=== PATIENT | female | born 1945 | race Hispanic/Latino ===

== ENCOUNTER 2019-10-05 17:29 | Inpatient (IN) | payer OTHER ==
[~2019-10-05] VITALS: Ht 147.3 cm; Wt 72.5 kg
[~2019-10-05 17:29] MED LIST: ALEN70TA69 PO; ASPI-556 PO; ATOR40TA69 PO; CITA10TA7 PO; DONE10TA36 PO; ERGO1POW10 MC; FERR324T4 PO; Folic Acid/Vitamin B Comp W-C PO; MAGOX PO; METF-446 PO; SODI650T PO; VALS160T29 PO
[2019-10-05 18:24] LABS: BASOPHILS % (AUTO) 0.7 % (0.0-5.0); EOSINOPHILS % (AUTO) 1.5 % (0.0-8.0); HEMATOCRIT 31.5 % (36-48); LYMPHOCYTES % (AUTO) 28.6 % (21.0-51.0); MEAN CORPUSCULAR HEMOGLOBIN 31.9 pg (27.0-33.0); MEAN CORPUSCULAR HGB CONC 32.1 g/dL (32.0-36.0); MEAN CORPUSCULAR VOLUME 99.4 fL (79-99); MONOCYTES % (AUTO) 10.1 % (3.0-13.0); NEUTROPHILS % (AUTO) 58.7 % (40.0-77.0); PLATELET COUNT (AUTO) 202 K/uL (130-400); RED BLOOD CELL COUNT(AUTO) 3.17 MIL/uL (4.00-5.50); RED CELL DISTRIBUTION WIDTH 12.2 % (11.0-15.5); WHITE BLOOD COUNT (AUTO) 5.5 K/uL (4.8-10.8)
[2019-10-05 18:26] LABS: CREATININE 1.1 mg/dL (0.5-1.5); POTASSIUM 4.7 mmol/L (3.5-5.1)
[2019-10-05 18:29] LABS: INR 0.99 (0.85-1.15); PARTIAL THROMBOPLASTIN TIME 25.2 SEC (26.3-35.5); PROTHROMBIN TIME 10.7 SEC (9.6-11.6)
[2019-10-05 18:31] LABS: ALBUMIN 3.3 g/dL (3.5-5.0); BILIRUBIN,TOTAL 0.3 mg/dL (0.2-1.0); TOTAL PROTEIN, SERUM 7.8 g/dL (6.0-8.3)
[2019-10-05] MEDS ORDERED: MORPHINE SULFATE 4 MG/1ML SYG ONE (18:42)
[2019-10-05] MEDS ORDERED: ONDANSETRON HCL 4 MG/2 ML VIAL ONE (18:42)
[2019-10-05 23:51] LABS: APPEARANCE,URINE Clear (CLEAR); BILIRUBIN,URINE Negative (NEGATIVE); COLOR,URINE Yellow (YELLOW); GLUCOSE, URINE (UA) Negative (NEGATIVE); KETONES,URINE Negative (NEGATIVE); LEUKOCYTE ESTERASE ,URINE Negative (NEGATIVE); NITRATE,URINE Negative (NEGATIVE); OCCULT BLOOD,URINE Negative (NEGATIVE); PH,URINE 5.5 (5.0-8.0); PROTEIN,URINE Trace mg/dL (NEGATIVE); UROBILINOGEN,URINE 0.2 mg/dL (0.2-1.0)
[2019-10-06 00:35] VITALS: BP 155/64
[2019-10-06] MEDS ORDERED: LACTATED RINGERS 1000ML 1,000 ML IV ONE (01:13)
[2019-10-06] MEDS ORDERED: MORPHINE SULFATE 2 MG/ML 1ML SYG ONE (02:14)
[2019-10-06 04:00] VITALS: BP 111/49
[2019-10-06 08:00] VITALS: BP 105/48
[2019-10-06] MEDS ORDERED: POTASSIUM CHLORIDE 20 MEQ ERTAB PO PRN (08:15)
[2019-10-06] MEDS ORDERED: ONDANSETRON HCL 4 MG/2 ML VIAL IVP PRN (08:15)
[2019-10-06] MEDS ORDERED: HYDRALAZINE HCL 20 MG/ML VIAL IV PRN (08:15)
[2019-10-06] MEDS ORDERED: HYDROMORPHONE HCL 0.5 MG/0.5 ML ML IVP PRN (08:15)
[2019-10-06] MEDS ORDERED: NITROGLYCERIN 0.4 MG SL TAB SL PRN (08:15)
[2019-10-06] MEDS ORDERED: POTASSIUM CHLORIDE 10% ELIXIR 20 MEQ/15 ML UDCUP PO PRN (08:15)
[2019-10-06] MEDS ORDERED: DEXTROSE 50%-WATER 50 ML DISP.SYRIN IV PRN (08:15)
[2019-10-06] MEDS ORDERED: LACTULOSE 20 GM/30 ML UDCUP PO PRN (08:15)
[2019-10-06] MEDS ORDERED: LIDOCAINE HCL-MPF 1% 2ML VIAL IV PRN (08:15)
[2019-10-06] MEDS ORDERED: GUAIFENESIN-DM 200/20 MG 10 ML PO PRN (08:15)
[2019-10-06] MEDS ORDERED: ACETAMINOPHEN 325 MG TAB PO PRN (08:15)
[2019-10-06] MEDS ORDERED: ONDANSETRON HCL 4 MG/2 ML VIAL IV PRN (08:15)
[2019-10-06] MEDS ORDERED: GLUCAGON 1MG KIT 1 MG ML IM PRN (08:15)
[2019-10-06] MEDS ORDERED: DiphenhydrAMINE HCL 50 MG/ML VIAL IV PRN (08:15)
[2019-10-06] MEDS ORDERED: POTASSIUM CHLORIDE 20MEQ/100ML 100 ML IV PRN (08:15)
[2019-10-06 08:59] LABS: MEAN CORPUSCULAR HEMOGLOBIN 31.2 pg (27.0-33.0); MEAN CORPUSCULAR HGB CONC 30.7 g/dL (32.0-36.0); MEAN CORPUSCULAR VOLUME 101.8 fL (79-99); PLATELET COUNT (AUTO) 186 K/uL (130-400); RED BLOOD CELL COUNT(AUTO) 2.85 MIL/uL (4.00-5.50); RED CELL DISTRIBUTION WIDTH 12.3 % (11.0-15.5); WHITE BLOOD COUNT (AUTO) 7.3 K/uL (4.8-10.8)
[2019-10-06 09:08] LABS: CREATININE 1.1 mg/dL (0.5-1.5); POTASSIUM 4.6 mmol/L (3.5-5.1)
[2019-10-06] MEDS ORDERED: COMPOUND IV MISC 1 EACH IVSOLN MISC PRN (09:30)
[2019-10-06] MEDS: HEPARIN SODIUM 5000UNIT/ML 1ML VIAL SQ SCH ×2 (10:33→21:37)
[2019-10-06] MEDS: FAMOTIDINE/PF 20 MG/2 ML VIAL IV SCH ×2 (10:42→21:35)
[2019-10-06] MEDS: LACTOBACILLUS RHAMNOSUS GG 1 EACH CAP.SPRINK PO SCH ×3 (10:42→21:36)
[2019-10-06] MEDS: INSULIN HUMULIN R 100 UNIT/ML 3ML SQ SCH ×3 (11:28→21:37)
[2019-10-06] MEDS: HYDROCODONE/ACETAMINOPHEN 10/325 MG TAB PO PRN ×2 (11:35→21:41)
[2019-10-06 11:45] VITALS: BP 100/48
[2019-10-06] MEDS ORDERED: SERT50TA PO (12:37)
--- NOTE | 2019-10-06 14:04 | NUR ---
INITIAL SW spoke to patient's daughter, Leonor Tay, [phone]. Daughter informed SW that patient lives with spouse, Ga Arechiga, [phone] and one of patient's sons. No home services. DME: cane, glucometer (no insulin). As per daughter, patient is able to complete ADL's and drives. PCP is Dr. Sunshine Jennings. Pharmacy is [facility] located on [address]. DCP is home. Addendum: 10/06/19 at 1407 by GLORIA RUBY SS Amended: Links added.
[2019-10-06 16:00] VITALS: BP 117/49
[2019-10-06] MEDS: SODIUM CHLORIDE 0.9% 1000ML 1,000 ML IV SCH ×2 (17:16→20:40)
[2019-10-06 20:58] VITALS: BP 115/48
[2019-10-07 00:11] VITALS: BP 124/46
[2019-10-07 04:00] VITALS: BP 101/41
[2019-10-07] MEDS: SODIUM CHLORIDE 0.9% 1000ML 1,000 ML IV SCH ×2 (04:21→21:25)
[2019-10-07 05:23] LABS: HEMATOCRIT 27.8 % (36-48); MEAN CORPUSCULAR HEMOGLOBIN 31.5 pg (27.0-33.0); MEAN CORPUSCULAR HGB CONC 31.3 g/dL (32.0-36.0); MEAN CORPUSCULAR VOLUME 100.7 fL (79-99); PLATELET COUNT (AUTO) 167 K/uL (130-400); RED BLOOD CELL COUNT(AUTO) 2.76 MIL/uL (4.00-5.50); RED CELL DISTRIBUTION WIDTH 12.2 % (11.0-15.5)
[2019-10-07 05:42] LABS: POTASSIUM 4.6 mmol/L (3.5-5.1)
[2019-10-07] MEDS: INSULIN HUMULIN R 100 UNIT/ML 3ML SQ SCH ×4 (06:13→21:00)
[2019-10-07 08:00] VITALS: BP 101/40
[2019-10-07] MEDS: HEPARIN SODIUM 5000UNIT/ML 1ML VIAL SQ SCH ×2 (09:20→21:34)
[2019-10-07] MEDS: FAMOTIDINE/PF 20 MG/2 ML VIAL IV SCH ×2 (09:22→21:26)
[2019-10-07] MEDS: LACTOBACILLUS RHAMNOSUS GG 1 EACH CAP.SPRINK PO SCH ×3 (09:22→21:26)
[2019-10-07] MEDS: IRON SUCROSE COMPLEX 100 MG in SODIUM CHLORIDE 0.9% 50 ML IV SCH (09:30)
--- NOTE | 2019-10-07 11:25 | NUR ---
DR. PALACIOS ROUNDED THIS AM. NOTIFIED DR. PALACIOS THAT PATIENT'S DAUGHTER HAS QUESTIONS REGARDING THE PROCEDURE FOR RIGHT FEMUR FRACTURE REPAIR. PER DR. PALACIOS, SURGERY MAY BE SCHEDULED FOR WEDNESDAY PENDING GRAFT. DR. PALACIOS SPOKE TO (REGIS) PATIENT'S DAUGHTER, QUESTIONS WERE ANSWERED.
[2019-10-07 11:40] VITALS: BP 110/52
[2019-10-07 16:00] VITALS: BP 105/36
[2019-10-07 20:00] VITALS: BP 143/56
[2019-10-08] VITALS: BP 102/62
[2019-10-08] MEDS: SODIUM CHLORIDE 0.9% 1000ML 1,000 ML IV SCH ×3 (00:14→21:15)
[2019-10-08 04:00] VITALS: BP 117/44
[2019-10-08] MEDS: INSULIN HUMULIN R 100 UNIT/ML 3ML SQ SCH ×4 (05:22→21:00)
[2019-10-08 06:44] LABS: HEMATOCRIT 27.3 % (36-48); MEAN CORPUSCULAR HEMOGLOBIN 31.4 pg (27.0-33.0); MEAN CORPUSCULAR HGB CONC 31.5 g/dL (32.0-36.0); MEAN CORPUSCULAR VOLUME 99.6 fL (79-99); PLATELET COUNT (AUTO) 162 K/uL (130-400); RED BLOOD CELL COUNT(AUTO) 2.74 MIL/uL (4.00-5.50); RED CELL DISTRIBUTION WIDTH 11.9 % (11.0-15.5); WHITE BLOOD COUNT (AUTO) 7.7 K/uL (4.8-10.8)
[2019-10-08 07:02] LABS: CREATININE 0.9 mg/dL (0.5-1.5); POTASSIUM 4.1 mmol/L (3.5-5.1)
[2019-10-08 08:00] VITALS: BP 133/52
[2019-10-08] MEDS: HYDROCODONE/ACETAMINOPHEN 10/325 MG TAB PO PRN (08:59)
[2019-10-08] MEDS: LACTOBACILLUS RHAMNOSUS GG 1 EACH CAP.SPRINK PO SCH ×3 (09:00→21:01)
[2019-10-08] MEDS: FAMOTIDINE/PF 20 MG/2 ML VIAL IV SCH ×2 (09:00→21:01)
[2019-10-08] MEDS: IRON SUCROSE COMPLEX 100 MG in SODIUM CHLORIDE 0.9% 50 ML IV SCH (09:51)
[2019-10-08] MEDS: HEPARIN SODIUM 5000UNIT/ML 1ML VIAL SQ SCH ×2 (10:35→21:11)
[2019-10-08 12:00] VITALS: BP 139/60
[2019-10-08 16:00] VITALS: BP 125/52
[2019-10-08 20:00] VITALS: BP 128/54
[2019-10-09] VITALS (7 sets, daily range): BP systolic 106–155; BP diastolic 51–73
[2019-10-09 04:50] LABS: HEMATOCRIT 25.7 % (36-48); MEAN CORPUSCULAR HEMOGLOBIN 31.8 pg (27.0-33.0); MEAN CORPUSCULAR HGB CONC 31.9 g/dL (32.0-36.0); MEAN CORPUSCULAR VOLUME 99.6 fL (79-99); PLATELET COUNT (AUTO) 169 K/uL (130-400); RED BLOOD CELL COUNT(AUTO) 2.58 MIL/uL (4.00-5.50); WHITE BLOOD COUNT (AUTO) 7.3 K/uL (4.8-10.8)
[2019-10-09 05:12] LABS: CREATININE 0.7 mg/dL (0.5-1.5)
[2019-10-09] MEDS: INSULIN HUMULIN R 100 UNIT/ML 3ML SQ SCH ×4 (07:30→20:30)
[2019-10-09] MEDS: LACTOBACILLUS RHAMNOSUS GG 1 EACH CAP.SPRINK PO SCH ×3 (09:00→20:29)
[2019-10-09] MEDS: IRON SUCROSE COMPLEX 100 MG in SODIUM CHLORIDE 0.9% 50 ML IV SCH (10:02)
[2019-10-09] MEDS: FAMOTIDINE/PF 20 MG/2 ML VIAL IV SCH ×2 (10:02→20:29)
[2019-10-09] MEDS: SODIUM CHLORIDE 0.9% 1000ML 1,000 ML IV SCH ×3 (10:05→20:39)
[2019-10-09] MEDS: HEPARIN SODIUM 5000UNIT/ML 1ML VIAL SQ SCH ×2 (10:13→20:28)
[2019-10-09] MEDS ORDERED: CEFAZOLIN SODIUM 1 GM VIAL IVP PRN (10:45)
[2019-10-10] MEDS: HYDROCODONE/ACETAMINOPHEN 10/325 MG TAB PO PRN ×2 (00:38→21:04)
[2019-10-10] MEDS: INSULIN HUMULIN R 100 UNIT/ML 3ML SQ SCH ×4 (07:30→21:00)
[2019-10-10 08:06] VITALS: BP 107/45
[2019-10-10] MEDS: HEPARIN SODIUM 5000UNIT/ML 1ML VIAL SQ SCH ×2 (08:22→21:00)
[2019-10-10] MEDS: LACTOBACILLUS RHAMNOSUS GG 1 EACH CAP.SPRINK PO SCH ×3 (08:22→21:00)
[2019-10-10] MEDS: IRON SUCROSE COMPLEX 100 MG in SODIUM CHLORIDE 0.9% 50 ML IV SCH (08:22)
[2019-10-10] MEDS: FAMOTIDINE/PF 20 MG/2 ML VIAL IV SCH ×2 (08:22→21:00)
--- NOTE | 2019-10-10 10:44 | NUR ---
ORTHOPEDIC SURGEON DR. PALACIOS IN TO SPEAK WITH PATIENT. NEW ORDERS RECEIVED AND CARRIED OUT.
[2019-10-10 11:20] VITALS: BP 119/53
[2019-10-10 16:02] VITALS: BP 118/58
[2019-10-10 20:00] VITALS: BP 132/63
[2019-10-10] MEDS: SODIUM CHLORIDE 0.9% 1000ML 1,000 ML IV SCH ×2 (21:03→21:04)
[2019-10-10 23:55] VITALS: BP 119/49
[2019-10-11] VITALS (24 sets, daily range): BP systolic 106–139; BP diastolic 40–87
[2019-10-11 06:20] LABS: MEAN CORPUSCULAR HEMOGLOBIN 31.1 pg (27.0-33.0); MEAN CORPUSCULAR HGB CONC 31.1 g/dL (32.0-36.0); PLATELET COUNT (AUTO) 194 K/uL (130-400); RED CELL DISTRIBUTION WIDTH 12.3 % (11.0-15.5); WHITE BLOOD COUNT (AUTO) 5.5 K/uL (4.8-10.8)
[2019-10-11] MEDS: INSULIN HUMULIN R 100 UNIT/ML 3ML SQ SCH ×4 (06:29→20:29)
[2019-10-11 06:33] LABS: CREATININE 0.8 mg/dL (0.5-1.5); POTASSIUM 3.6 mmol/L (3.5-5.1)
[2019-10-11] MEDS: LACTOBACILLUS RHAMNOSUS GG 1 EACH CAP.SPRINK PO SCH ×3 (08:22→21:00)
[2019-10-11] MEDS: HEPARIN SODIUM 5000UNIT/ML 1ML VIAL SQ SCH ×2 (08:22→21:09)
[2019-10-11] MEDS: FAMOTIDINE/PF 20 MG/2 ML VIAL IV SCH ×2 (08:22→21:00)
[2019-10-11] MEDS: IRON SUCROSE COMPLEX 100 MG in SODIUM CHLORIDE 0.9% 50 ML IV SCH (08:22)
[2019-10-11] MEDS ORDERED: LIDOCAINE PF 2% 5ML ABBOJECT ONE ×2 (11:46→12:54)
[2019-10-11] MEDS ORDERED: ONDANSETRON HCL 4 MG/2 ML VIAL ONE ×2 (11:47→12:54)
[2019-10-11] MEDS ORDERED: DEXAMETHASONE SOD PHOSPHATE 10MG/ML 1ML VIAL ONE (11:47)
[2019-10-11] MEDS ORDERED: ROCURONIUM 10MG/1ML SYR 10 MG/ML ML ONE ×2 (11:48→12:54)
[2019-10-11] MEDS ORDERED: PROPOFOL 10 MG/ML 20ML VIAL IV ONE ×2 (11:48→12:54)
[2019-10-11] MEDS ORDERED: FENTANYL CITRATE PF 50 MCG/1 ML 2ML VIAL ONE ×7 (11:48→16:01)
[2019-10-11] MEDS ORDERED: NEOSTIGMINE 5MG/5ML SYR IV ONE (11:48)
[2019-10-11] MEDS ORDERED: GLYCOPYRROLATE 1 MG/5 ML SYRINGE ONE (11:48)
[2019-10-11] MEDS ORDERED: MIDAZOLAM HCL 1 MG/ML 2ML VIAL ONE (11:48)
[2019-10-11] MEDS ORDERED: SUCCINYLCHOLINE CHLORIDE 20 MG/ML 10 ML VIAL ONE (12:54)
[2019-10-11] MEDS ORDERED: DEXAMETHASONE SOD PHOSPHATE 4 MG/ML 1ML VIAL ONE (13:15)
[2019-10-11] MEDS ORDERED: CEFAZOLIN SODIUM 1 GM VIAL ONE (13:36)
[2019-10-11] MEDS ORDERED: EPHEDRINE SULFATE 50 MG/ML AMPULE ONE (13:37)
[2019-10-11] MEDS ORDERED: ALBUMIN (HUMAN) 5% 250 ML IV ONE ×2 (13:48→13:49)
[2019-10-11] MEDS ORDERED: VANCOMYCIN HCL 1 GM VIAL ONE (14:36)
[2019-10-11] MEDS: CEFAZOLIN SODIUM 1 GM VIAL IVP SCH ×2 (15:30→23:02)
[2019-10-11] MEDS ORDERED: MORPHINE SULFATE 4 MG/1ML SYG ONE (16:15)
--- NOTE | 2019-10-11 17:08 | NUR ---
POST SURGERY PATIENT RECEIVED FROM PACU VIA HOSPITAL BED IN STABLE CONDITION. SHE IS SLEEPY, BUT ABLE TO ANSWER QUESTIONS. DENIES PAIN AT THIS TIME. POST OP V/S HAVE BEEN INITIATED. REORIENTED TO ROOM AND USE OF CALL LIGHT. WILL CONTINUE TO MONITOR.
[2019-10-11] MEDS: SODIUM CHLORIDE 0.9% 1000ML 1,000 ML IV SCH (18:28)
[2019-10-11] MEDS: HYDROCODONE/ACETAMINOPHEN 10/325 MG TAB PO PRN (21:00)
[2019-10-12 00:16] VITALS: BP 117/56
[2019-10-12 04:12] VITALS: BP 118/53
[2019-10-12] MEDS: SODIUM CHLORIDE 0.9% 1000ML 1,000 ML IV SCH ×2 (05:20→14:14)
[2019-10-12 05:36] LABS: HEMATOCRIT 25.7 % (36-48); MEAN CORPUSCULAR HEMOGLOBIN 32.4 pg (27.0-33.0); MEAN CORPUSCULAR HGB CONC 32.7 g/dL (32.0-36.0); MEAN CORPUSCULAR VOLUME 99.2 fL (79-99); NUCLEATED RED BLOOD CELLS 0.2 % (0.0-0.19); PLATELET COUNT (AUTO) 190 K/uL (130-400); RED BLOOD CELL COUNT(AUTO) 2.59 MIL/uL (4.00-5.50); WHITE BLOOD COUNT (AUTO) 10.9 K/uL (4.8-10.8)
[2019-10-12] MEDS: INSULIN HUMULIN R 100 UNIT/ML 3ML SQ SCH ×4 (05:42→20:23)
[2019-10-12 05:43] LABS: CREATININE 0.8 mg/dL (0.5-1.5); POTASSIUM 4.3 mmol/L (3.5-5.1)
[2019-10-12] MEDS ORDERED: APIXABAN 5 MG TABLET PO SCH (08:45)
[2019-10-12 08:46] VITALS: BP 115/46
[2019-10-12] MEDS: IRON SUCROSE COMPLEX 100 MG in SODIUM CHLORIDE 0.9% 50 ML IV SCH (09:11)
[2019-10-12] MEDS: FAMOTIDINE/PF 20 MG/2 ML VIAL IV SCH ×2 (09:12→20:22)
[2019-10-12] MEDS: LACTOBACILLUS RHAMNOSUS GG 1 EACH CAP.SPRINK PO SCH ×3 (09:12→20:22)
[2019-10-12 11:25] VITALS: BP 116/52
[2019-10-12] MEDS: HYDROCODONE/ACETAMINOPHEN 10/325 MG TAB PO PRN ×2 (12:07→20:23)
--- NOTE | 2019-10-12 15:47 | NUR ---
ATUL SCREEN - LOS X 7 Pt admitted for R. Femur Fracture. S/p ORIF. 75gm CCD diet order resumed. Recommend 30mL ProMod TID. ATUL to continue to monitor. Please notify as additional nutrition concerns arise. Thank you. Addendum: 10/12/19 at [address] Amended: Links added.
--- NOTE | 2019-10-12 16:13 | NUR ---
CM NOTE SPOKE WITH DAUGHTER, REGIS ANGUIANO, OVER PHONE. PER POA, CONCERNED ABOUT COVID-19 AND PATIENTS COMORBIDITIES. EXPRESSED CONCERNED ABOUT PATIENTS DEMENTIA AND CONFUSION AND HOW NURSING HOMES ARE ON LOCK DOWN AND FAMILY NOT ABLE TO VISIT. POA AWARE OF PATIENT NOT ABLE TO STAY AT HOSPITAL. OPTIONS FOR SNF GIVEN BASED ON INSURANCE COVERAGE. PER POA, DOES NOT WANT [facility] " BEEN ON THE NEWS ABOUT [facility], NOT GONNA TAKE MY MOM THERE." POA EXPRESSED THAT THEY ARE OPEN TO HOME HEALTH WITH PT AND ARE WILLING TO BE TAUGHT PT EXERCISES THAT THEY CAN DO WITH PATIENT. WILL VOICE CONCERNS TO ADMITTING PROVIDER AND ORTHO CONSULT. CM TO FOLLOW UP ACCORDINGLY.
[2019-10-12 17:31] VITALS: BP 102/56
[2019-10-12 20:08] VITALS: BP 109/51
[2019-10-13] VITALS (7 sets, daily range): BP systolic 107–149; BP diastolic 48–85
[2019-10-13] MEDS: SODIUM CHLORIDE 0.9% 1000ML 1,000 ML IV SCH ×3 (00:14→20:29)
[2019-10-13] MEDS: HYDROCODONE/ACETAMINOPHEN 10/325 MG TAB PO PRN (01:16)
[2019-10-13 03:49] LABS: HEMATOCRIT 23.1 % (36-48); MEAN CORPUSCULAR HEMOGLOBIN 30.9 pg (27.0-33.0); MEAN CORPUSCULAR HGB CONC 31.6 g/dL (32.0-36.0); MEAN CORPUSCULAR VOLUME 97.9 fL (79-99); PLATELET COUNT (AUTO) 181 K/uL (130-400); RED BLOOD CELL COUNT(AUTO) 2.36 MIL/uL (4.00-5.50); RED CELL DISTRIBUTION WIDTH 14.1 % (11.0-15.5); WHITE BLOOD COUNT (AUTO) 9.2 K/uL (4.8-10.8)
[2019-10-13 04:07] LABS: CREATININE 0.9 mg/dL (0.5-1.5); POTASSIUM 3.6 mmol/L (3.5-5.1)
[2019-10-13] MEDS: INSULIN HUMULIN R 100 UNIT/ML 3ML SQ SCH ×4 (06:11→20:50)
[2019-10-13] MEDS: FAMOTIDINE/PF 20 MG/2 ML VIAL IV SCH ×2 (08:53→20:53)
[2019-10-13] MEDS: IRON SUCROSE COMPLEX 100 MG in SODIUM CHLORIDE 0.9% 50 ML IV SCH (08:53)
[2019-10-13] MEDS: LACTOBACILLUS RHAMNOSUS GG 1 EACH CAP.SPRINK PO SCH ×3 (08:53→20:53)
[2019-10-13] MEDS: ACETAMINOPHEN 325 MG TAB PO PRN (12:22)
--- NOTE | 2019-10-13 14:47 | NUR ---
[id number] patient signed IM Letter, I faxed IM Letter to [phone] and placed in chart under consent tab.
--- NOTE | 2019-10-13 15:00 | NUR ---
CM NOTE/DME NEW REQUEST FOR DME BY DR. PALACIOS. ELLI VERBAL OK FOR [facility]. RX FOR DME FAXED AND CONFIRMED RECEIVED. PER ZANE AT [facility], PATIENT APPROVED FOR WHEELCHAIR WITH LEG EXTENSION AND WILL BE DELIVERED TONIGHT. POSSIBLE DC HOME TOMORROW IF HH STABLE PER DR. PALACIOS. NURSING AWARE TO TEACH INCISION DRESSING. FAMILY AWARE OF DME DELIVERY. PRIMARY NURSE, MARILEE MEJÍA, MADE AWARE OF DME DELIVERY.
--- NOTE | 2019-10-13 16:13 | NUR ---
DC DEJESUS PER DR PALACIOS ORDERS. 10 CC REMOVED FROM B[facility]OON. TIP OF THE CATHETER INTACT. PATIENT DTV.
[2019-10-14 03:46] LABS: BASOPHILS % (AUTO) 0.3 % (0.0-5.0); EOSINOPHILS % (AUTO) 0.8 % (0.0-8.0); HEMATOCRIT 23.7 % (36-48); LYMPHOCYTES % (AUTO) 17.9 % (21.0-51.0); MEAN CORPUSCULAR HEMOGLOBIN 31.4 pg (27.0-33.0); MEAN CORPUSCULAR HGB CONC 32.5 g/dL (32.0-36.0); MEAN CORPUSCULAR VOLUME 96.7 fL (79-99); MONOCYTES % (AUTO) 8.3 % (3.0-13.0); NEUTROPHILS % (AUTO) 71.9 % (40.0-77.0); PLATELET COUNT (AUTO) 199 K/uL (130-400); RED BLOOD CELL COUNT(AUTO) 2.45 MIL/uL (4.00-5.50); RED CELL DISTRIBUTION WIDTH 13.8 % (11.0-15.5); WHITE BLOOD COUNT (AUTO) 8.8 K/uL (4.8-10.8)
[2019-10-14 03:51] VITALS: BP 124/48
[2019-10-14] MEDS: INSULIN HUMULIN R 100 UNIT/ML 3ML SQ SCH ×2 (06:09→11:23)
[2019-10-14] MEDS: SODIUM CHLORIDE 0.9% 1000ML 1,000 ML IV SCH (06:10)
[2019-10-14] MEDS: ACETAMINOPHEN 325 MG TAB PO PRN (08:20)
[2019-10-14] MEDS: IRON SUCROSE COMPLEX 100 MG in SODIUM CHLORIDE 0.9% 50 ML IV SCH (08:20)
[2019-10-14] MEDS: FAMOTIDINE/PF 20 MG/2 ML VIAL IV SCH (08:20)
[2019-10-14] MEDS: LACTOBACILLUS RHAMNOSUS GG 1 EACH CAP.SPRINK PO SCH ×2 (08:20→13:42)
[2019-10-14 08:33] VITALS: BP 142/57
[2019-10-14 12:40] VITALS: BP 118/57
--- NOTE | 2019-10-14 17:04 | NUR ---
DISCHARGE PATIENT AND DAUGHTER, REGIS WEINBERG, GIVEN DISCHARGE INSTRUCTIONS AND EDUCATION ON FOLLOW UP APPOINTMENTS, NEW PRESCRIBED MEDICATIONS, STRICT NWB TO THE RIGHT EXTREMITY, RX (TRAMADOL, ELIQUIS) AND INCISION CARE. PATIENT AND REGIS VERBALIZED UNDERSTANDING OF ALL EDUCATION GIVEN VIA TEACH BACK. IV DISCONTINUED, CATHETER INTACT. EMS HERE TO TRANSFER PATIENT. ALL BELONGINGS TAKEN WITH.
== END 2019-10-14 16:30 | disposition home or self-care (01) | DRG 480 ==
LOC: EDH 17:29 → EDHIP 18:50 → 4AH 22:19
PROVIDERS: ADMIT Internal Medicine Critical Care Medicine; ATTEND Internal Medicine Critical Care Medicine
PROC: 30233N1 Transfusion of Nonautologous Red Blood Cells into Peripheral Vein, Percutaneous Approach (ICD-10-PCS; 2019-10-11)
PROC: 0SP904Z Removal of Internal Fixation Device from Right Hip Joint, Open Approach (ICD-10-PCS; 2019-10-11)
PROC: 0QS804Z Reposition Right Femoral Shaft with Internal Fixation Device, Open Approach (ICD-10-PCS; principal; 2019-10-11 12:56)
DX: T84.194A Other mechanical complication of internal fixation device of right femur, initial encounter (principal); S72.301A Unspecified fracture of shaft of right femur, initial encounter for closed fracture; E44.1 Mild protein-calorie malnutrition; E87.1 Hypo-osmolality and hyponatremia; N17.9 Acute kidney failure, unspecified; M97.01XA Periprosthetic fracture around internal prosthetic right hip joint, initial encounter; M85.80 Other specified disorders of bone density and structure, unspecified site; D63.8 Anemia in other chronic diseases classified elsewhere; E66.9 Obesity, unspecified; N18.9 Chronic kidney disease, unspecified; Z96.641 Presence of right artificial hip joint; E11.22 Type 2 diabetes mellitus with diabetic chronic kidney disease; F32.9 Major depressive disorder, single episode, unspecified; F41.9 Anxiety disorder, unspecified; R15.9 Full incontinence of feces; W01.0XXA Fall on same level from slipping, tripping and stumbling without subsequent striking against object, initial encounter; Y93.01 Activity, walking, marching and hiking; Y92.89 Other specified places as the place of occurrence of the external cause; Y99.8 Other external cause status; Z79.82 Long term (current) use of aspirin; Z87.81 Personal history of (healed) traumatic fracture; Z68.33 Body mass index [BMI] 33.0-33.9, adult; Z88.8 Allergy status to other drugs, medicaments and biological substances; Z84.89 Family history of other specified conditions; Z83.3 Family history of diabetes mellitus; Z82.49 Family history of ischemic heart disease and other diseases of the circulatory system; Y79.8 Miscellaneous orthopedic devices associated with adverse incidents, not elsewhere classified; Y92.9 Unspecified place or not applicable
CPT/HCPCS: 36415; 71045; 73552; 73700; 80048; 80053; 81003; 82550; 82948; 84484; 85025; 85027; 85610; 85730; 86850; 86900; 86901; 86922; 93005; 97039; G0378; J0330; J0690; J1100; J1644; J1756; J1815; J2001; J2250; J2270; J2405; J2704; J2710; J3010; J3370; J3490; J7030; J7120; P9016; P9045

== ENCOUNTER 2023-03-05 20:37 | Emergency (ER) | payer OTHER, MEDICARE ==
[~2023-03-05] VITALS: Ht 154.9 cm; Wt 81.6 kg
[~2023-03-05 20:37] MED LIST changes: -ALEN70TA69 PO; +ALEN70TA80 PO; -CITA10TA7 PO; +DONE-53 PO; -DONE10TA36 PO; -FERR324T4 PO; -Folic Acid/Vitamin B Comp W-C PO; +MAGN400T7 PO; -MAGOX PO; -METF-446 PO; +SERT50TA PO; -SODI650T PO
[2023-03-05 21:21] LABS: CREATININE 1.4 mg/dL (0.5-1.5); POTASSIUM 4.3 mmol/L (3.5-5.1)
[2023-03-05 21:26] LABS: BASOPHILS # (AUTO) 0.03 K/uL (0.00-0.20); BASOPHILS % (AUTO) 0.4 % (0.0-5.0); EOSINOPHILS # (AUTO) 0.03 K/uL (0.00-0.70); EOSINOPHILS % (AUTO) 0.4 % (0.0-8.0); HEMATOCRIT 33.8 % (36-48); IMMATURE GRANULOCYTE ABSOLUTE 0.02 K/uL (0-1); LYMPHOCYTES # (AUTO) 1.2 K/uL (1.0-4.8); LYMPHOCYTES % (AUTO) 16.9 % (21.0-51.0); MEAN CORPUSCULAR HEMOGLOBIN 30.9 pg (27.0-33.0); MEAN CORPUSCULAR VOLUME 96.6 fL (79-99); MONOCYTES # (AUTO) 0.5 K/uL (0.1-1.0); MONOCYTES % (AUTO) 7.6 % (3.0-13.0); NEUTROPHILS # (AUTO) 5.3 K/uL (1.8-7.7); NEUTROPHILS % (AUTO) 74.4 % (40.0-77.0); PLATELET COUNT (AUTO) 203 K/uL (130-400); RED CELL DISTRIBUTION WIDTH 13.1 % (11.0-15.5); WHITE BLOOD COUNT (AUTO) 7.1 K/uL (4.8-10.8)
[2023-03-05] MEDS ORDERED: 0.9%NACL 1000ML 1,000 ML IV ONE (21:30)
[2023-03-05 21:31] LABS: ALBUMIN 3.2 g/dL (3.5-5.0); BILIRUBIN,TOTAL 0.6 mg/dL (0.2-1.0); TOTAL PROTEIN, SERUM 7.6 g/dL (6.0-8.3)
[2023-03-05 22:45] LABS: BILIRUBIN,URINE NEGATIVE (NEGATIVE); COLOR,URINE YELLOW (YELLOW); GLUCOSE, URINE (UA) NEGATIVE (NEGATIVE); KETONES,URINE 5 mg/dL (NEGATIVE); LEUKOCYTE ESTERASE ,URINE MODERATE Leu/uL (NEGATIVE); NITRATE,URINE NEGATIVE (NEGATIVE); OCCULT BLOOD,URINE TRACE-INTACT (NEGATIVE); PROTEIN,URINE 100 mg/dL (NEGATIVE); UROBILINOGEN,URINE 0.2 mg/dL (0.2-1.0)
[2023-03-05 22:48] LABS: ADD UA MICROSCOPIC YES; APPEARANCE,URINE CLOUDY (CLEAR)
[2023-03-05 23:03] LABS: BACTERIA,URINE Moderate /HPF (None Seen); RBC,URINE 0-1 /HPF (0-1); SQUAMOUS EPITHELIAL CELL,UR Few /HPF (0-2)
[2023-03-05 23:04] LABS: COARSE GRANULAR CASTS,URINE 0-2 /LPF (None Seen)
[2023-03-05 23:10] VITALS: PULSE 84
[2023-03-05 23:15] VITALS: BP 165/70; RESP 18; O2SAT 98
[2023-03-05] MEDS ORDERED: CEFU500T67 PO (23:47)
== END 2023-03-06 00:03 | disposition home or self-care (01) ==
LOC: EDH 20:37
DX: N39.0 Urinary tract infection, site not specified (principal); D64.9 Anemia, unspecified; E86.0 Dehydration; E11.9 Type 2 diabetes mellitus without complications; Z79.82 Long term (current) use of aspirin; Z79.899 Other long term (current) drug therapy; Z88.8 Allergy status to other drugs, medicaments and biological substances; Z90.49 Acquired absence of other specified parts of digestive tract
CPT/HCPCS: 99285; 96360; 70450; 71045; 82550; 84484; 80053; 85025; 87077; 87088; 87186; 81001; 36415; 93005; J7030

== ENCOUNTER → 2024-09-19 | Outpatient (CLI) | payer OTHER, MEDICARE ==
[~2024-09-19] MED LIST changes: +CEFU500T67 PO; +FENTanyl CITRate PF 50 MCG/1 ML 2ML VIAL ONE; +MIDAZOLAM HCL 1 MG/ML 2ML VIAL ONE
--- NOTE | 2024-09-19 22:58 | HMCSR ---
APPROVED REPORT EXAM: Two-dimensional and M-mode echocardiogram with Doppler and color Doppler. INDICATION ICD: Dyspnea R06.00, Cardiac murmur 2D Dimensions RVDd2.9 cmLVEF(%)56.9 (>50%)LVEF(%, simp.)55 % IVSd1.2 (0.7-1.1cm)FS(%)29 %LA ESV INDEX (BP)27.76 mL/m2 LVDd3.6 (3.8-5.6cm)LA (2D)4.8 (1.6-4.0cm) PWd0.8 (0.7-1.1cm)Ao Root(2D)2.5 (2.0-3.7cm) IVSs1.1 cmLVOT diam1.5 (1.8-2.4cm) LVDs2.6 (2.5-4.0cm)IVC diam1.6 cm PWs1.2 cm M-Mode Dimensions LA (MM)4.6 (1.6-4.0cm) Ao Root(MM)2.8 (2.0-3.7cm) Aortic Valve AoV Vmax2.0 m/Cher Peak GR16.5 mmHgLVOT Vmax1.7 m/s AoV VTI0.4 mAo Mean GR8.9 mmHgLVOT VTI0.37 m LORI (VMAX)1.6 cm2AVA (VTI) 1.6 cm2 Mitral Valve MV E Vmax94.9 cm/sDECEL Dzdg645 msMV Peak GR8 mmHg MV A Bvqo701.0 cm/sP 1/2 T109 msMV Mean GR3 mmHg E/A ratio0.7MVA (PHT)2.0 cm2 TDI E/E' Miwamp16.7E/E' Aeoesxc90.6 Medial E' Peak V4.00 cm/sLateral E' Peak V7.00 cm/s Pulmonary Valve PV Vmax1.1 m/s Tricuspid Valve TR Vmax2.3 m/sRVSP19.1 mmHg TR Peak GR20.3 mmHg Left Ventricle The left ventricle is normal size. There is normal LV segmental wall motion. Mild concentric LVH. The LVEF is > 70%. Stage I diastolic dysfunction. Right Ventricle The right ventricle is normal size. The right ventricular systolic function is normal. Atria The left atrium size is moderatedly dilated. The right atrium size is normal. Aortic Valve The aortic valve is trileaflet and normal. No aortic regurgitation is present. There is no aortic gary vular stenosis. Mitral Valve The mitral valve anterior leaflet is thickened. Mitral annular calcification. There is mild mitral va lve regurgitation noted. There is no mitral valve stenosis. Tricuspid Valve The tricuspid valve is normal in structure. There is trace of tricuspid valve regurgitation noted. Pulmonic Valve The pulmonary valve is normal in structure. There is no pulmonic valvular regurgitation. Great Vessels The aortic root is normal in size. The IVC is normal in size and collapses >50% with inspiration. Pericardium There is no pericardial effusion. Epicardial fat pad. Other Information Quality : Adequate Conclusion The left atrium size is moderatedly dilated. The left ventricle is normal size. Mild concentric LVH. There is normal LV segmental wall motion. The LVEF is > 70%. Stage I diastolic dysfunction. The aortic valve is trileaflet and normal. The mitral valve anterior leaflet is thickened. Mitral annular calcification. There is mild mitral valve regurgitation noted. There is no mitral valve stenosis. There is no pericardial effusion. Epicardial fat pad.
== END | disposition home or self-care (01) ==
LOC: RAH 13:02
PROVIDERS: ATTEND Internal Medicine
DX: I05.9 Rheumatic mitral valve disease, unspecified (principal); R06.09 Other forms of dyspnea; R01.1 Cardiac murmur, unspecified
CPT/HCPCS: 93306; J2250; J3010

== ENCOUNTER 2025-05-29 19:54 | Emergency (ER) | payer OTHER, MEDICARE ==
[~2025-05-29] VITALS: Ht 157.5 cm; Wt 68.0 kg
[~2025-05-29 19:54] MED LIST changes: -FENTanyl CITRate PF 50 MCG/1 ML 2ML VIAL ONE; -MIDAZOLAM HCL 1 MG/ML 2ML VIAL ONE
[2025-05-29 19:57] VITALS: TEMP 98
--- NOTE | 2025-05-29 20:27 | NUR ---
FAMILY REPORTS PATIENT HAD AND EPISODE OF LOW BLOOD SUGAR WHILE AT A GRANDCHILDS BIRTHDAY CONSTITUTION PARTY. BECAME DIAPHORETIC AND CONFUSED, WAS GIVEN ICING FROM THE CAKE AND SYMPTOMS IMPROVED. EMS REPORTS GLUCOSE CHECK 120
[2025-05-29 20:33] LABS: IMMATURE GRANULOCYTE ABSOLUTE 0.02 K/uL (0-1); NUCLEATED RED BLOOD CELLS 0.0 % (0.0-0.19); PLATELET COUNT (AUTO) 177 K/uL (130-400); RED BLOOD CELL COUNT(AUTO) 3.40 MIL/uL (4.00-5.50); RED CELL DISTRIBUTION WIDTH 13.2 % (11.0-15.5); WHITE BLOOD COUNT (AUTO) 5.6 K/uL (4.8-10.8)
[2025-05-29] MEDS: LACTATED RINGERS 1000ML IV STA (20:34)
[2025-05-29 20:40] LABS: CREATININE 1.5 mg/dL (0.5-1.0); GLOMERULAR FILTR. RATE CALC 35.0 mL/min (>90); GLUCOSE,RANDOM 72.0 mg/dL (70-105); SODIUM SERUM 140.0 mmol/L (136-145); UREA NITROGEN, BLOOD 20.0 mg/dL (7-18)
--- NOTE | 2025-05-29 20:47 | ERN ---
General Chief Complaint: Hypoglycemia Stated Complaint: HYPOGLYCEMIA Time Seen by MD: 19:57 Source: patient, family History of Present Illness Initial Comments 80-year-old female with a history of diabetes and dementia was eating dinner with her family when she passed out at the dinner table. Family called 911 and gave the patient some cake frosting. Patient's blood glucose per EMT when they arrived was 90 and on route was 120. Patient arrives to the ED alert oriented moving all extremities with no memory of the event. Timing/Duration: 1-3 hours Severity: moderate Allergies: Coded Allergies: lisinopril (Verified Allergy, Unknown, 07/07/19) metformin (Verified Allergy, Unknown, 07/07/19) Home Meds Active Scripts Cefuroxime Axetil (Cefuroxime) 500 Mg Tablet, 500 MG PO BID, #20 TAB Prov:NICOLE PEREZ MD 03/05/23 Magnesium Oxide (Mag-Ox) 400 Mg Tab, 400 MG PO DAILY for 30 Days, #30 TAB Prov:RAMIN RAM NP 07/10/19 Reported Medications Sertraline HCl (Zoloft) 50 Mg Tablet, 50 MG PO AM, TAB 10/06/19 Alendronate Sodium (Alendronate Sodium) 70 Mg Tablet, 70 MG PO QWEEK, TAB 07/07/19 Ergocalciferol (Vitamin D2) (Ergocalciferol) 1 Gm Powder, 1.25 MG MC QWEEK, APPL 07/07/19 Donepezil HCl (Donepezil HCl) 10 Mg Tab.rapdis, 10 MG PO HS, TAB 07/07/19 Atorvastatin Calcium (LIPITOR) 80 Mg Tablet, 80 MG PO DAILY, TAB 07/07/19 Valsartan (Valsartan) 160 Mg Tablet, 160 MG PO DAILY, TAB 07/07/19 Aspirin (Aspir 81) 81 Mg Tablet.dr, 81 MG PO DAILY, TAB 07/07/19 Past Medical History Past Medical History: Dementia, Diabetes-Type II, Unable to Obtain Medical History Other: PATIENT IS POOR HISTORIAN Past Surgical History: Cholecystectomy Surgical History Other: PATIENT IS POOR HISTORIAN Social History Social History: Lives with family Constitutional: (-) chills, (-) diaphoresis, (-) fever, (-) malaise, (-) weakness, (-) other documentation EENTM: (-) eye pain, (-) blurred vision, (-) tearing, (-) double vision, (-) ear pain, (-) ear discharge, (-) nose pain, (-) nose congestion, (-) throat pain, (-) Throat swelling, (-) mouth pain, (-) tooth pain, (-) mouth swelling, (-) other documentation Respiratory: (-) cough, (-) orthopnea, (-) short of breath, (-) stridor, (-) wheezing, (-) other documentation Cardiovascular: (-) chest pain, (-) edema, (-) palpitations, (-) syncope, (-) dyspnea on exertion, (-) other documentation Gastrointestinal/Abdominal: (-) nausea, (-) vomiting, (-) diarrhea, (-) abdominal pain, (-) abdominal distention, (-) constipation, (-) rectal bleeding, (-) dark stool/melena, (-) other documentation Genitourinary: (-) vaginal discharge, (-) vaginal bleeding, (-) dysuria, (-) frequency, (-) hematuria, (-) pain, (-) other documentation Musculoskeletal: (-) Neck pain, (-) back pain, (-) Flank Pain, (-) joint pain, (-) joint swelling, (-) muscle pain, (-) muscle stiffness, (-) gout, (-) other documentation Skin: (-) laceration, (-) contusion, (-) abrasion, (-) abscess, (-) rash, (-) change in color, (-) change in hair, (-) change in nails, (-) diaphoresis, (-) dryness, (-) other documentation Neuro: (-) altered mental status, (-) headache, (-) syncope, (-) paralysis, (-) numbness, (-) seizure, (-) pre-existing deficit, (-) tremors, (-) weakness, (-) dizziness, (-) slurred speech, (-) vertigo, (-) other documentation Physical Exam General Appearance: (+) no apparent distress Orientation: (+) alert, (+) oriented x 3 Head/Face Trauma: No Eye: bilateral eye normal inspection, bilateral eye PERRL, bilateral eye EOMI Ear, Nose, Throat: (+) hearing grossly normal, (+) normal ENT inspection, (+) moist mucous membraine Neck: (+) normal inspection, (+) supple, (+) full range of motion, (+) no JVD Respiratory: (+) chest non-tender, (+) lungs clear, (+) well ventilated Heart: (+) regular, (+) no gallop Vascular: (+) no edema, (+) abnormal peripheral pulse Vascular Comment Peripheral pulses are thready Gastrointestinal: (+) soft, (+) non-tender, (+) no organomegaly, (+) bowel sound present Neurologic/Psychiatric: (+) normal speech, (+) no motor defecits Results Laboratory and Microbiology Lab and Micro Result Laboratory Tests Test 05/29/25 20:27 05/29/25 21:42 05/29/25 22:19 White Blood Count 5.6 K/uL (4.8-10.8) Red Blood Count 3.40 MIL/uL (4.00-5.50) L Hemoglobin 10.8 g/dL (12.0-16.0) L Hematocrit 33.2 % (36-48) L Mean Corpuscular Volume 97.6 fL (79-99) Mean Corpuscular Hemoglobin 31.8 pg (27.0-33.0) Mean Corpuscular Hemoglobin Concent 32.5 g/dL (32.0-36.0) Red Cell Distribution Width 13.2 % (11.0-15.5) Platelet Count 177 K/uL (130-400) Mean Platelet Volume 10.4 fL (7.5-10.5) Immature Granulocyte % (Auto) 0.4 % (0-1) Neutrophils (%) (Auto) 69.9 % (40.0-77.0) Lymphocytes (%) (Auto) 20.4 % (21.0-51.0) L Monocytes (%) (Auto) 8.4 % (3.0-13.0) Eosinophils (%) (Auto) 0.5 % (0.0-8.0) Basophils (%) (Auto) 0.4 % (0.0-5.0) Neutrophils # (Auto) 3.9 K/uL (1.8-7.7) Lymphocytes # (Auto) 1.1 K/uL (1.0-4.8) Monocytes # (Auto) 0.5 K/uL (0.1-1.0) Eosinophils # (Auto) 0.03 K/uL (0.00-0.70) Basophils # (Auto) 0.02 K/uL (0.00-0.20) Absolute Immature Granulocyte (auto 0.02 K/uL (0-1) Nucleated Red Blood Cells 0.0 % (0.0-0.19) Sodium Level 140 mmol/L (136-145) Potassium Level 4.2 mmol/L (3.5-5.1) Chloride Level 103 mmol/L (101-111) Carbon Dioxide Level 31 mmol/L (21-32) Blood Urea Nitrogen 20 mg/dL (7-18) H Creatinine 1.5 mg/dL (0.5-1.0) H Glomerular Filtration Rate Calc 35 mL/min (>90) Random Glucose 72 mg/dL (70-105) Total Calcium 8.8 mg/dL (8.5-10.1) Troponin I High Sensitivity 13 ng/L (4-50) Whole Blood Glucose 95 MG/DL (70-110) Urine Color YELLOW (YELLOW) Urine Appearance TURBID (CLEAR) Urine pH 8.0 (5.0-8.0) Urine Specific [place] 1.020 (1.001-1.031) Urine Protein 30 mg/dL (NEGATIVE) H Urine Glucose (UA) NEGATIVE mg/dL (NEGATIVE) Urine Ketones NEGATIVE mg/dL (NEGATIVE) Urine Occult Blood SMALL (NEGATIVE) H Urine Nitrate NEGATIVE (NEGATIVE) Urine Bilirubin NEGATIVE mg/dL (NEGATIVE) Urine Urobilinogen 2.0 mg/dL (0.2-1.0) H Urine Leukocyte Esterase 500 Praveen/uL (NEGATIVE) H Urine RBC 2-5 /HPF (0-1) H Urine WBC TNTC /HPF (0-1) H Urine WBC Clumps (Auto) FEW /HPF (0-1) Urine Squamous Epithelial Cells FEW /HPF (0-2) Urine Bacteria MANY /HPF (None Seen) Urine Yeast FEW /HPF (None Seen) Labs Reviewed?: Yes EKG/XRAY/US/CT/MRI EKG: (+) NSR MDM MDM: Differential diagnosis: CVA, TIA, transient cardiac arrhythmia, hypoglycemia, dehydration, acute NM, electrolyte abnormality Rationale: Tests considered and ordered secondary to shared decision making include: Previous outside records reviewed: Old ER visits. Risk of complication and/or morbidity or mortality of patient management: None Medications-Per medication reconciliation Need for hospitalization: Patient does meet criteria for hospitalization. Need for emergency major/minor surgery: No There are no social concerns with this patient. Prescription drug management Prescriptions will include symptomatic care Patient's prior external medical records from other ER visits were reviewed by me as indicated. Prior testing and results from previous visits were reviewed. Prior tests were taken into account with medical decision making and resource utilization, independent historian/historians were used to obtain complete medical history. I independently interpreted the test that were performed, results were reviewed by me and considered findings on radiology if ordered. Patient in alert and oriented the entire time she has been here in the emergency room. Her laboratory studies show that she has a urinary tract infection. Chemistry panel shows possible acute kidney injury but I do not have any prior labs to compare. She has been in normal sinus rhythm the entire time she has been here in the hospital. It is conceivable the patient had a TIA although I would favor maybe a hypoglycemic event were some hypotension associated with her urinary tract infection. ED Course Orders Procedure Category Date Status Time 12 Lead Ekg Tracing- EKG 05/29/25 Complete Technical 20:11 Basic Metabolic Panel LAB 05/29/25 Complete 20:11 Cbc With Differential LAB 05/29/25 Complete 20:11 Urinalysis Profile LAB 05/29/25 Complete 20:11 Bedside Glucose CPOE 05/29/25 Transmitted Fingerstick 20:11 Troponin I High LAB 05/29/25 Complete Sensitivity 20:11 Lactated Ringers PHA 05/29/25 Complete 1000ml (Lactated 20:11 Culture Urine BEN 05/29/25 In Process 22:27 Current Medications Medications (Trade) Dose Ordered Sig/Nya Route PRN Reason Start Time Stop Time Status Last Admin Dose Admin Lactated Ringer's (Lactated Ringers 1000ml) 1,000 ml BOLUS STAT IV 05/29/25 20:11 05/29/25 20:16 DC 05/29/25 20:34 Vital Signs Date Time Temp Pulse Resp B/P (MAP) Pulse Ox O2 Delivery O2 Flow Rate FiO2 05/29/25 22:21 67 18 132/46 100 Room Air* 0 21 05/29/25 19:57 98.1 72 14 126/74 97 Room Air 0 DX & DISP Disposition: Discharge Departure Impression: Primary Impression: UTI (urinary tract infection) Additional Impression: Hyperglycemia Condition: Stable Scripts Nitrofurantoin Macrocrystal (Nitrofurantoin) 100 Mg Capsule 1 CAP PO BID for 10 Days, #20 CAP 0 Refills Prov: BRYAN MENDOZA MD 05/29/25 Additional Instructions: You were brought to the hospital because your family noted a transient decrease in your alertness. There were no overt signs of a stroke such as a unilateral facial weakness or difficulty talking. It is possible the transient decrease in consciousness is due to hypoglycemia or the urinary tract infection. I have sent a prescription for the urinary tract infection. I recommend you follow-up with your primary care doctor who may order an ultrasound of your carotid arteries or an echocardiogram to make sure that you are not at risk for strokes in the future. Please bring the patient to the emergency room if these symptoms recur of transient loss of consciousness. Referrals: KIMBERLY GUTIERREZ MD (PCP) BRYAN MENDOZA MD May 29, 2025 20:47
--- NOTE | 2025-05-29 21:47 | EKG ---
[facility] Test Date: 2025-05-29 Test Time: 20:48:53 Pat Name: RICKY WELCH Department: [facility] Room: Gender: F Live Study Manager: [id number] : 1945 Requested By: BRYAN MENDOZA Order Number: [id number] Reading MD: Victorino Eduardo Measurements Intervals [place] Rate: 60 P: 49 CA: 198 QRS: -29 QRSD: 86 T: 52 QT: 420 QTc: 420 Interpretive Statements Sinus rhythm Early R wave transition Electronically Signed On 05-30-2025 07:18:25 ENGINE DISPATCHER by Victorino Eduardo Please click the below link to view image of tracing.
[2025-05-29 22:21] VITALS: BP 132/46; PULSE 67; RESP 18; O2SAT 100
[2025-05-29 22:27] LABS: ADD UA MICROSCOPIC YES; APPEARANCE,URINE TURBID (CLEAR); GLUCOSE, URINE (UA) NEGATIVE (NEGATIVE); LEUKOCYTE ESTERASE ,URINE 500 Leu/uL (NEGATIVE); NITRATE,URINE NEGATIVE (NEGATIVE); OCCULT BLOOD,URINE SMALL (NEGATIVE)
[2025-05-29 22:31] LABS: SQUAMOUS EPITHELIAL CELL,UR FEW /HPF (0-2); WBC CLUMP FEW /HPF (0-1); YEAST,URINE BUDDING FEW /HPF (None Seen)
[2025-05-29] MEDS ORDERED: NITR100C PO (22:51)
== END 2025-05-29 23:08 | disposition home or self-care (01) ==
LOC: EDH 19:54
DX: E11.65 Type 2 diabetes mellitus with hyperglycemia (principal); N39.0 Urinary tract infection, site not specified; F03.90 Unspecified dementia, unspecified severity, without behavioral disturbance, psychotic disturbance, mood disturbance, and anxiety; Z79.82 Long term (current) use of aspirin; Z79.899 Other long term (current) drug therapy; Z88.8 Allergy status to other drugs, medicaments and biological substances; Z90.49 Acquired absence of other specified parts of digestive tract
CPT/HCPCS: 99284; 84484; 80048; 85025; 87086 ×2; 87186; 82948; 81001; 36415; 93005; J7120